=== PATIENT | male | born 1995 ===

== ENCOUNTER 2021-06-27 17:54 | Emergency (ER) | payer OTHER ==
[2021-06-27] MEDS ORDERED: ONDANSETRON 4 MG ODT TAB PO ONE (21:11)
[2021-06-27] MEDS ORDERED: oxyCODONE /ACETAMINOPHEN 5-325MG TAB PO ONE (21:11)
[2021-06-27] MEDS ORDERED: CLINDAMYCIN 150 MG CAP PO ONE (21:11)
[2021-06-27] MEDS ORDERED: SULFAMETHOXAZOLE/TRIMETHOPRIM 800/160MG DS TAB PO ONE (21:11)
[2021-06-27] MEDS ORDERED: IBUPROFEN 600 MG TAB PO ONE (21:27)
--- NOTE | 2021-06-27 21:32 | Emergency Department Report ---
ED General Adult HPI - General Chief complaint: Pain General Stated complaint: TAILBONE INJURY Source: patient Mode of arrival: Ambulatory Limitations: No Limitations - History of Present Illness Initial comments: Patient is a 25-year-old -[place] male with no past medical history who presented to the ED with complaint of acute onset persistent painful swollen mild erythematous maculopapular rash on pilonidal area with thick purulent discharge for the last 5 days. Patient states that the pain is worsened in the last 2 days and early prior to arrival in the ED he noticed that the draining was mixed with blood. Patient denies numbness and tingling or weakness of lower extremities, urinary or bowel incontinence, fever and chills, traumatic injury, chest pain or shortness of breath, nausea and vomiting. MD Complaint: Pilonidal cyst pain, draining purulent discharge -: Sudden, days(s) (5) Location: buttocks Radiation: non-radiation Severity scale (0 -10): 8 Quality: aching, sharp Consistency: constant Improves with: none Worsens with: movement Associated Symptoms: denies other symptoms, rash (Swollen, painful mild erythematous maculopapular rash on pilonidal area with purulent discharge). denies: confusion, chest pain, cough, diaphoresis, headaches, loss of appetite, malaise, nausea/vomiting, shortness of breath, syncope, weakness, other Treatments Prior to Arrival: none - Related Data Previous Rx's Medication Instructions Recorded Last Taken Type Clindamycin [Clindamycin CAP] 300 mg PO Q8HR #60 capsule 06/27/21 Unknown Rx DOXYCYCLINE Hyclate [Vibramycin 100 mg PO Q12HR #20 capsule 06/27/21 Unknown Rx CAP] Ibuprofen [Motrin] 800 mg PO Q8HR PRN #30 tablet 06/27/21 Unknown Rx traMADoL [Ultram] 50 mg PO Q6HR PRN #12 tablet 06/27/21 Unknown Rx Allergies Allergy/AdvReac Type Severity Reaction Status Date / Time No Known Allergies Allergy Verified 06/27/21 19:05 ED Review of Systems ROS: Stated complaint: TAILBONE INJURY Other details as noted in HPI Constitutional: denies: chills, fever Eyes: denies: eye pain, eye discharge, vision change ENT: denies: ear pain, throat pain Respiratory: denies: cough, shortness of breath, wheezing Cardiovascular: denies: chest pain, palpitations Endocrine: no symptoms reported Gastrointestinal: denies: abdominal pain, nausea, vomiting, diarrhea Genitourinary: denies: urgency, dysuria Musculoskeletal: denies: back pain, joint swelling, arthralgia Skin: rash (Painful swollen mild erythematous maculopapular rash on pilonidal area with thick purulent discharge), change in color. denies: lesions Neurological: denies: headache, weakness, paresthesias Psychiatric: denies: anxiety, depression Hematological/Lymphatic: denies: easy bleeding, easy bruising ED Past Medical Hx - Past Medical History Previous Medical History?: No - Surgical History Past Surgical History?: Yes Additional Surgical History: tubes in ear - Medications Home Medications: Home Medications Medication Instructions Recorded Confirmed Last Taken Type Clindamycin [Clindamycin CAP] 300 mg PO Q8HR #60 capsule 06/27/21 Unknown Rx DOXYCYCLINE Hyclate [Vibramycin 100 mg PO Q12HR #20 capsule 06/27/21 Unknown Rx CAP] Ibuprofen [Motrin] 800 mg PO Q8HR PRN #30 tablet 06/27/21 Unknown Rx traMADoL [Ultram] 50 mg PO Q6HR PRN #12 tablet 06/27/21 Unknown Rx ED Physical Exam - General Limitations: No Limitations General appearance: alert, in no apparent distress - Head Head exam: Present: atraumatic, normocephalic, normal inspection - Eye Eye exam: Present: normal appearance, PERRL, EOMI Pupils: Present: normal accommodation - ENT ENT exam: Present: normal exam, normal orophraynx, mucous membranes moist, TM's normal bilaterally, normal external ear exam - Neck Neck exam: Present: normal inspection, full ROM - Respiratory Respiratory exam: Present: normal lung sounds bilaterally. Absent: respiratory distress, wheezes, rales, rhonchi, stridor, chest wall tenderness, accessory mus abran use, decreased breath sounds, other - Cardiovascular Cardiovascular Exam: Present: normal rhythm, tachycardia, normal heart sounds. Absent: systolic murmur, diastolic murmur, rubs, gallop - GI/Abdominal GI/Abdominal exam: Present: soft, normal bowel sounds. Absent: tenderness, guarding, rebound, hyperactive bowel sounds, hypoactive bowel sounds, organomegaly - Extremities Exam Extremities exam: Present: normal inspection, full ROM, normal capillary refill - Back Exam Back exam: Present: normal inspection, full ROM. Absent: tenderness, CVA tenderness (R), CVA tenderness (L), muscle spasm, paraspinal tenderness, vertebral tenderness - Neurological Exam Neurological exam: Present: alert, oriented X3, CN II-XII intact, normal gait, reflexes normal - Psychiatric Psychiatric exam: Present: normal affect, normal mood - Skin Skin exam: Present: warm, dry, intact, normal color, rash (Swollen, severely tender, mild erythematous maculopapular rash on pilonidal area with thick purulent discharge), erythema ED Course Vital Signs 06/27/21 19:03 Temperature 99.9 F H Pulse Rate 107 H Respiratory 16 Rate Blood Pressure 151/105 O2 Sat by Pulse 99 Oximetry ED Medical Decision Making - Medical Decision Making This is a 25-year-old -[place] male with no past medical history who presented to the ED with complaint of acute onset persistent painful swollen mild erythematous maculopapular rash on pilonidal area with thick purulent discharge for the last 5 days. Patient states that the pain is worsened in the last 2 days and early prior to arrival in the ED he noticed that the draining was mixed with blood. In the ED, patient is alert and oriented x3 and is not in any distress but tachycardic and afebrile in triage. Patient was treated for pain in the ED and was given initial oral antibiotics. The wound was cleaned extensively and dressed appropriately with 4 x 4 gauzes and Tegaderm. Patient tolerated procedure well. Patient will discharge home on pain medications and antibiotics and advised to follow-up with his primary care physician in 7 to 10 days for reevaluation or return to the ED immediately if symptoms get worse. - Differential Diagnosis Pilonidal abscess; cellulitis; cutaneous abscess; folliculitis Critical care attestation.: If time is entered above; I have spent that time in minutes in the direct care of this critically ill patient, excluding procedure time. ED Disposition Clinical Impression: Sacrococcygeal pilonidal cyst with abscess, Cellulitis and abscess of buttock Disposition: HOME / SELF CARE / HOMELESS Is pt being admited?: No Does the pt Need Aspirin: No Condition: Stable Instructions: Cellulitis, Adult, [id number], Skin Abscess, [id number], Pilonidal Cyst Drainage, Care After Additional Instructions: Take medication with food, drink plenty fluids and follow-up with your primary care physician in 7 to 10 days for reevaluation. Return to the ED immediately if symptoms get worse. Prescriptions: Clindamycin [Clindamycin CAP] 300 mg PO Q8HR #60 capsule Ibuprofen [Motrin] 800 mg PO Q8HR PRN #30 tablet PRN Reason: Pain , Severe (7-10) traMADoL [Ultram] 50 mg PO Q6HR PRN #12 tablet PRN Reason: Pain DOXYCYCLINE Hyclate [Vibramycin CAP] 100 mg PO Q12HR #20 capsule Referrals: [facility] [Provider Group] - 7-10 days Time of Disposition: 21:32 Print Language: M[place]
[2021-06-27 22:26] VITALS: BP 128/86
== END 2021-06-27 22:20 | disposition home or self-care (01) ==
LOC: ED 17:54
DX: L05.01 Pilonidal cyst with abscess (principal); L03.317 Cellulitis of buttock
CPT/HCPCS: 99282; J3490; Q0162